=== PATIENT | male | born 1995 | race Caucasian/White ===

== ENCOUNTER 2019-01-23 09:12 | Emergency (ER) | payer SELFPAY ==
[~2019-01-23] VITALS: Ht 180.3 cm; Wt 63.5 kg
[2019-01-23] MEDS ORDERED: TETANUS-DIPTH-ACEL PERTUSSIS 0.5ML SYRG IM ONE (11:30)
[2019-01-23] MEDS ORDERED: BACITRACIN TOP OINT 1 UD PKG TOP ONE (12:45)
[2019-01-23 13:30] VITALS: BP 134/76
== END 2019-01-23 13:40 | disposition home or self-care (01) ==
LOC: ER 09:12 → EDBD 09:12 → ER 13:40
DX: S40.012A Contusion of left shoulder, initial encounter (principal); S00.81XA Abrasion of other part of head, initial encounter; Z88.1 Allergy status to other antibiotic agents; W17.89XA Other fall from one level to another, initial encounter; Y93.89 Activity, other specified; Y99.8 Other external cause status; Y92.89 Other specified places as the place of occurrence of the external cause
CPT/HCPCS: 70486; 73030; 90471; 90715